=== PATIENT | male | born 1930 | race Hispanic/Latino ===

== ENCOUNTER 2016-11-30 03:59 | Emergency (ER) | payer MEDICARE ==
[2016-11-30 04:49] LABS: Hematocrit 41.2 % (35.5-45.6); Hemoglobin 13.5 gm/dl (11.8-15.2); Mean Corpuscular HGB Conc 33 % (32-34); Mean Corpuscular Hemoglobin 30 pg (28-32); Mean Corpuscular Volume 91 fl (84-94); Platelet Count 170 K/mm3 (140-440); Red Blood Count 4.52 M/mm3 (3.65-5.03); Red Cell Distribution Width 15.3 % (13.2-15.2); White Blood Count 9.6 K/mm3 (4.5-11.0)
[2016-11-30 04:59] LABS: INR 2.39 (0.87-1.13)
[2016-11-30 05:00] LABS: Partial Thromboplastin Time 35.7 Sec. (24.2-36.6)
--- NOTE | 2016-11-30 05:13 | Cat Scan Report ---
FINAL REPORT PROCEDURE: CT HEAD/BRAIN WO CON TECHNIQUE: Computerized tomography of the head was performed without contrast material. HISTORY: chi COMPARISON: No prior studies are available for comparison. FINDINGS: Skull and scalp: There is left parietal scalp swelling. There is no skull fracture.. Paranasal sinuses: Normal. Ventricles and subarachnoid spaces: There is mild central and cortical atrophy. There is no hydrocephalus.. Cerebrum: No evidence of hemorrhage, acute infarction or mass . Cerebellum and brainstem: No evidence of hemorrhage, acute infarction or mass. Vasculature: Normal. Comments: None. IMPRESSION: Left parietal scalp swelling. There is no skull fracture or hemorrhage.
[2016-11-30] MEDS ORDERED: XYLOCAINE 2%/EPI 1:100,000 INFILTRATI ONE (06:18)
--- NOTE | 2016-11-30 07:41 | Emergency Department Report ---
HPI - General Chief Complaint: Wound/Laceration Time Seen by Provider: 11/30/16 06:37 - HPI HPI: Chief complaint: Fall scalp laceration HPI: Patient is a 86-year-old male with a history of atrial fibrillation and hypertension who is on Xarelto. Last dose was yesterday morning. Patient denies loss of consciousness and states he tripped on a rug and hitting the top of his head on a knob protruding from the piano. [id number] states that she cleaned it and it seemed to be okay and put him to bed he woke up with bleeding from his head. Mode of arrival: EMS Source: Patient and family member Began: Occurred last night Duration: See above Context: See above Quality: Pain-free Severity: 0 out of 10 Improved with: Bleeding improved with pressure Worsened with: Nothing Associated signs and symptoms: See above ED Past Medical Hx - Past Medical History Previous Medical History?: Yes Hx Hypertension: Yes Additional medical history: afib, bronchitis, - Surgical History Past Surgical History?: No - Social History Smoking Status: Never Smoker Substance Use Type: None - Medications Home Medications: Home Medications Medication Instructions Recorded Confirmed Last Taken Type Furosemide [Lasix] 20 mg PO QDAY 11/30/16 11/30/16 Unknown History Iron Fum & Poly #1/C/L. Casei 11/30/16 Unknown History [Fusion Capsule] Iron,Carbonyl [Iron Chews] 65 mg PO BID 11/30/16 11/30/16 Unknown History Metoprolol [Lopressor] 25 mg PO BID 11/30/16 11/30/16 Unknown History Multivitamin W/Iron, Minerals 1 each PO DAILY 11/30/16 11/30/16 Unknown History [Spectravite Senior] [place]-3 Fatty Acids/Fish Oil [Fish 1 each PO DAILY 11/30/16 11/30/16 Unknown History Oil] Potassium Gluconate 595 mg PO DAILY 11/30/16 11/30/16 Unknown History Rivaroxaban [Xarelto] 20 mg PO QDAY 11/30/16 11/30/16 Unknown History Warfarin [Coumadin] 2.5 mg PO QDAY 11/30/16 11/30/16 Unknown History ED Review of Systems ROS: Stated complaint: HEAD LACERATION Other details as noted in HPI ROS Constitutional: No fever ENT: No uri symptoms Cardiovascular: No chest pain Respiratory: No sob , recent diagnosis of bronchitis on antibiotics GI: No nausea vomiting or diarrhea : No dysuria frequency or urgency, Skin: No rash Neuro: No focal weakness or numbness. Frequent falls as patient does not use his walker. Psych: No depression [place]/lymph: No edema Physical Exam - Physical Exam Vital Signs: Vital Signs 11/30/16 11/30/16 04:02 04:08 Temperature 98.4 F Pulse Rate 70 Respiratory 18 18 Rate O2 Sat by Pulse 99 99 Oximetry Physical Exam: GENERAL: The patient is well-developed well-nourished . HEENT: Normocephalic. Atraumatic. Extraocular motions are intact. Patient has moist mucous membranes. NECK: Supple. No meningitic signs are noted. There is no adenopathy noted. Chest nontender CHEST/LUNGS: Clear to auscultation. There is no respiratory distress noted. ABDOMEN: Abdomen is soft, nontender. Patient has normal bowel sounds. There is no abdominal distention. SKIN: 3 cm laceration to the crown of the head. Bleeding controlled There is no edema. There is no diaphoresis. NEURO: The patient is awake, alert, and oriented. The patient is cooperative. The patient has no focal neurologic deficits. The patient has normal speech. MUSCULOSKELETAL: There is no tenderness or deformity. There is no limitation range of motion. There is no evidence of acute injury. ED Course Vital Signs 11/30/16 11/30/16 04:02 04:08 Temperature 98.4 F Pulse Rate 70 Respiratory 18 18 Rate O2 Sat by Pulse 99 99 Oximetry - Laceration /Wound Repair Head Wound Location: head Wound Length (cm): 3 (occipital scalp ) Wound's Depth, Shape: linear, contused tissue Wound Explored: clean Irrigated w/ Saline (ccs): 50 Betadine Prep?: No (Elmer ) Anesthesia: Lidocaine w/ Epi Wound Debrided: minimal Wound Repaired With: sutures Suture Size/Type: 3:0, proline Number of Sutures: 4 Layer Closure?: No Sterile Dressing Applied?: Yes ED Medical Decision Making - Lab Data Result diagrams: 11/30/16 04:32 - Radiology Data Radiology results: report reviewed (CT head and C-spine showed no acute process. ) Critical care attestation.: If time is entered above; I have spent that time in minutes in the direct care of this critically ill patient, excluding procedure time. ED Disposition Clinical Impression: Scalp laceration Qualifiers: Encounter type: initial encounter Qualified Code(s): S01.01XA - Laceration without foreign body of scalp, initial encounter Disposition: DISCHARGED TO HOME OR SELFCARE Is pt being admited?: No Does the pt Need Aspirin: No Condition: Stable Instructions: Laceration (ED), Suture Care (ED), Rivaroxaban (By mouth) Additional Instructions: Suture removal 7-10 days. You may come back here or follow up with your primary care doctor. Referrals: ADDISON CRAMER MD [Primary Care Provider] - 7-10 days Time of Disposition: 07:37
--- NOTE | 2016-11-30 07:46 | Cat Scan Report ---
FINAL REPORT PROCEDURE: CT CERVICAL SPINE WO CON TECHNIQUE: Computerized tomography of the cervical spine was performed without contrast material. HISTORY: fall COMPARISON: None FINDINGS: There is no CT evident paraspinal hematoma. There is no avulsion fracture or CT evident nondisplaced microfracture. Subtle anterior listhesis likely degenerative of the C4 on C5 vertebral body is present. Broad-based central disc protrusion without stenosis at C2/C3 as well as central protrusion limiting central canal to lower limits of normal in size at C4/C5 is present. Significant desiccation and flattening of the C3/C4-C5/C6 and C6/C7 intervertebral discs is present. There is multilevel facet DJD. Evaluation of peripheral stenosis is somewhat suboptimal due to off axis angle of axial slices relative to the intervertebral disc spaces is present. There is however degenerative mild bilateral C5/C6 and left C6/C7 foraminal stenosis suspected. There is no jumped/perched facet. IMPRESSION: Subtle anterior listhesis likely degenerative of the C4 on C5 vertebral body. Consider lateral radiographs in neutral, flexion extension to evaluate for ligamentous instability. Multilevel degenerative changes with mild peripheral stenosis as described as well as suspected disc protrusions without stenosis at C2/C3 and C4/C5. If desired further evaluation may be obtained with MRI. If symptoms persist or worsen, MRI should be performed for further evaluation.
[2016-11-30 08:00] VITALS: BP 132/89
== END 2016-11-30 08:01 | disposition home or self-care (01) ==
LOC: ED 03:59
DX: S01.01XA Laceration without foreign body of scalp, initial encounter (principal); I10 Essential (primary) hypertension; Z79.01 Long term (current) use of anticoagulants; W22.8XXA Striking against or struck by other objects, initial encounter; Y93.89 Activity, other specified; Y99.8 Other external cause status; Y92.89 Other specified places as the place of occurrence of the external cause
CPT/HCPCS: 36415; 70450; 72125; 85027; 85610; 85730